=== PATIENT | female | born 1955 | race Caucasian/White ===

== ENCOUNTER 2016-07-22 08:53 | Emergency (ER) | payer BC, OTHER ==
[~2016-07-22] VITALS: Ht 165.1 cm; Wt 71.9 kg
[~2016-07-22 08:53] MED LIST: ALEN70TA4 PO; ASPI-461 PO; ATOR-22 PO; ATV5X PO; CHOL100027 PO; CYCL10TA6 PO; NXM/40 PO; OMEG1400 PO; SENN-58
[2016-07-22 09:04] VITALS: TEMP 36.6; Ht 165.1 cm; Wt 71.9 kg
[2016-07-22] MEDS ORDERED: PROB1TAB16 PO (09:18)
[2016-07-22] MEDS ORDERED: SUCR1TAB29 PO (09:18)
[2016-07-22] MEDS ORDERED: POLY335019 PO (09:18)
[2016-07-22] MEDS ORDERED: PANT40TA PO (09:18)
[2016-07-22] MEDS ORDERED: CRFL PO (09:19)
[2016-07-22 10:03] LABS: BASO % 0.5 %; BASO ABS # 0.03 K/uL (0-0.2); COMPLETE YES; EOS % 1.4 %; HEMATOCRIT 44.4 % (37-47); IG% 0.2 %; LYMPH % 35.1 %; LYMPH ABS # 2.04 K/uL (1.2-3.4); MEAN CELL VOLUME 87.4 fL (80-100); MEAN CORPUSCULAR HEMOGLOBIN 29.1 pg (25-34); MEAN CORPUSCULAR HGB CONC 33.3 g/dl (32-36); MONO % 10.7 %; NEUT % 52.1 %; PLATELET COUNT 244 K/uL (130-400); RED BLOOD COUNT 5.08 M/uL (4.2-5.4); WHITE BLOOD COUNT 5.81 K/uL (4.8-10.8)
[2016-07-22 10:18] LABS: CALCIUM 10.3 mg/dl (8.5-10.1); CREATININE 0.86 mg/dl (0.60-1.20); POTASSIUM 3.8 mmol/L (3.5-5.1)
[2016-07-22 10:20] LABS: URINE APPEARANCE CLEAR (CLEAR); URINE BILIRUBIN NEG (NEG); URINE COLOR YELLOW; URINE NITRITE NEG (NEG); URINE SPECIFIC GRAVITY 1.015 (1.000-1.030); UROBILINOGEN NEG (NEG); ZZUR CULT IF INDIC CLEAN CATCH NO
[2016-07-22 10:34] LABS: MANUAL MICROSCOPIC REQUIRED? NO; REVIEW REQ? NO
--- NOTE | 2016-07-22 10:37 | DIAGNOSTIC IMAGING REPORT ---
ABDOMEN AND PELVIS CT WITHOUT CONTRAST CT DOSE: 537.68 mGycm HISTORY: Acute left lower quadrant abdominal pain. TECHNIQUE: Multiaxial CT images of the abdomen and pelvis were performed without contrast. COMPARISON STUDY: None. FINDINGS: There is a 6 mm stone within the lower pole the left kidney. No right renal or ureteral calculi. No hydronephrosis. There are few small left renal peripelvic cysts. The bladder is not well-distended but appears unremarkable. The unenhanced liver, gallbladder, pancreas, spleen, and adrenal glands are unremarkable. No retroperitoneal lymphadenopathy. The uterus and bilateral adnexa are within normal limits. Suboptimal evaluation for bowel pathology due to the lack of intravenous and oral contrast. However, there is no definite bowel wall thickening or obstruction. A few sigmoid diverticula. Normal appendix. The lung bases are clear. No suspicious lytic or blastic osseous lesions. IMPRESSION: 1. Left-sided nephrolithiasis. No hydronephrosis. 2. No definite bowel wall thickening or obstruction. 3. A few colonic diverticula. Electronically signed by: Zain Rojas M.D. 07/22/2016 10:35 AM Dictated Date/Time: 07/22/2016 10:16 AM
[2016-07-22] MEDS ORDERED: AMOX875T PO (12:14)
[2016-07-22] MEDS ORDERED: AMOXICILLIN/CLAVULANATE TAB 875 MG TAB PO ONE (12:15)
[2016-07-22 12:33] VITALS: BP 138/87; PULSE 73; O2SAT 100
--- NOTE | 2016-07-22 15:58 | EMERGENCY ROOM VISIT NOTE ---
History Report prepared by Jose Manuel: Laure Georges Under the Supervision of: Dr. Vern Morales M.D. First contact with patient: 09:22 Chief Complaint: ABDOMINAL PAIN Stated Complaint: L LOWER QUAD PAIN Nursing Triage Summary: pt c/o left lower quad pain started 2 weeks ago. feels nauseated this am. scant bm yesterday takes miralax. had colonoscopy week of giving History of Present Illness The patient is a 60 year old female who presents to the Emergency Room with complaints of worsening left sided abdominal pain starting about 2 and a half weeks ago. She has a history of diverticulitis and reports similar symptoms today. She had a colonoscopy in April with normal results. She currently rates a pain intensity of 6/10. She also has a history of breast cancer. Pt denies LOC, headache, fevers, chills, diaphoresis, visual changes, neck pain, chest pain, breathing difficulties, nausea, vomiting, back pain, melena, hematochezia, urinary symptoms, numbness, weakness, lymphadenopathy, rash, or other complaints. Source of History: patient Onset: about 2 and a half weeks ago Position: abdomen (Left sided) Symptom Intensity: 6/10 Timing: worsening Review of Systems See HPI for pertinent positives and negatives. A total of ten systems were reviewed and were otherwise negative. Past Medical & Surgical Medical Problems: (1) Breast cancer (2) Ectopic (3) GERD (gastroesophageal reflux disease) (4) Hx of Tonsillectomy and adenoidectomy (5) Hyperlipidemia (6) Osteopenia Surgical Problems: (1) H/O tubal ligation Family History Diabetes mellitus FH: gallbladder disease Heart disease Kidney disease or stones Social History Smoking Status: Never Smoker Drug Use: none Marital Status: single Housing Status: unknown Occupation Status: employed Current/Historical Medications Scheduled Amoxicillin & Pot Clavulanate (Augmentin 875-125 mg), 875 MG PO BID Aspirin (Aspirin), 81 MG PO DAILY Atorvastatin (Lipitor), 20 MG PO DAILY Cholecalciferol (Vitamin D 1000 Unit), 1,000 INTER.UNIT PO DAILY Cyclobenzaprine Hcl (Flexeril), 10 MG PO HS [place]-3 Fatty Acids ([place]-3), 1 CAP PO DAILY Pantoprazole Sodium (Protonix), 40 MG PO DAILY Polyethylene Glycol 3350 (Miralax), 17 GM PO DAILY Probiotic Product (Probiotic), 1 TAB PO DAILY Sucralfate (Carafate), 10 ML PO DAILY Scheduled PRN Lorazepam (Lorazepam), 0.5 MG PO TID PRN for Anxiety Allergies Coded Allergies: No Known Allergies (Unverified , 07/22/16) Physical Exam Vital Signs Date Time Temp Pulse Resp B/P Pulse Ox O2 Delivery O2 Flow Rate FiO2 07/22/16 12:33 73 18 138/87 100 Room Air 07/22/16 10:36 80 18 128/83 99 Room Air 07/22/16 09:04 36.6 88 18 153/87 99 Room Air Physical Exam GENERAL: Awake, alert, well-appearing, in no distress HENT: Normocephalic, atraumatic. Oropharynx unremarkable. EYES: Normal conjunctiva. Sclera non-icteric. NECK: Supple. No nuchal rigidity. FROM. No JVD. RESPIRATORY: Clear to auscultation. CARDIAC: Regular rate, normal rhythm. Extremities warm and well perfused. Pulses equal. ABDOMEN: Soft, non-distended. Left upper and left lower quadrant tenderness to palpation. No rebound or guarding. No masses. RECTAL: Deferred. MUSCULOSKELETAL: Chest examination reveals no tenderness. The back is symmetrical on inspection without obvious abnormality. There is no CVA tenderness to palpation. No joint edema. LOWER EXTREMITIES: Calves are equal size bilaterally and non-tender. No edema. No discoloration. NEURO: Normal sensorium. No sensory or motor deficits noted. SKIN: No rash or jaundice noted. Medical Decision & Procedures ER Provider Diagnostic Interpretation: CT: Radiology results as stated below per my review and radiologist interpretation ABDOMEN AND PELVIS CT WITHOUT CONTRAST CT DOSE: 537.68 mGycm HISTORY: Acute left lower quadrant abdominal pain. TECHNIQUE: Multiaxial CT images of the abdomen and pelvis were performed without contrast. COMPARISON STUDY: None. FINDINGS: There is a 6 mm stone within the lower pole the left kidney. No right renal or ureteral calculi. No hydronephrosis. There are few small left renal peripelvic cysts. The bladder is not well-distended but appears unremarkable. The unenhanced liver, gallbladder, pancreas, spleen, and adrenal glands are unremarkable. No retroperitoneal lymphadenopathy. The uterus and bilateral adnexa are within normal limits. Suboptimal evaluation for bowel pathology due to the lack of intravenous and oral contrast. However, there is no definite bowel wall thickening or obstruction. A few sigmoid diverticula. Normal appendix. The lung bases are clear. No suspicious lytic or blastic osseous lesions. IMPRESSION: 1. Left-sided nephrolithiasis. No hydronephrosis. 2. No definite bowel wall thickening or obstruction. 3. A few colonic diverticula. Electronically signed by: Zain Rojas M.D. 07/22/2016 10:35 AM Dictated Date/Time: 07/22/2016 10:16 AM Laboratory Results 07/22/16 09:40 Red Blood Count 5.08, Mean Corpuscular Volume 87.4, Mean Corpuscular Hemoglobin 29.1, Mean Corpuscular Hemoglobin Concent 33.3, Mean Platelet Volume 9.0, Neutrophils (%) (Auto) 52.1, Lymphocytes (%) (Auto) 35.1, Monocytes (%) (Auto) 10.7, Eosinophils (%) (Auto) 1.4, Basophils (%) (Auto) 0.5, Neutrophils # (Auto ) 3.03, Lymphocytes # (Auto) 2.04, Monocytes # (Auto) 0.62, Eosinophils # (Auto ) 0.08, Basophils # (Auto) 0.03 07/22/16 09:40 Test 07/22/16 09:40 White Blood Count 5.81 K/uL (4.8-10.8) Red Blood Count 5.08 M/uL (4.2-5.4) Hemoglobin 14.8 g/dL (12.0-16.0) Hematocrit 44.4 % (37-47) Mean Corpuscular Volume 87.4 fL (80-100) Mean Corpuscular Hemoglobin 29.1 pg (25-34) Mean Corpuscular Hemoglobin Concent 33.3 g/dl (32-36) Platelet Count 244 K/uL (130-400) Mean Platelet Volume 9.0 fL (7.4-10.4) Neutrophils (%) (Auto) 52.1 % Lymphocytes (%) (Auto) 35.1 % Monocytes (%) (Auto) 10.7 % Eosinophils (%) (Auto) 1.4 % Basophils (%) (Auto) 0.5 % Neutrophils # (Auto) 3.03 K/uL (1.4-6.5) Lymphocytes # (Auto) 2.04 K/uL (1.2-3.4) Monocytes # (Auto) 0.62 K/uL (0.11-0.59) Eosinophils # (Auto) 0.08 K/uL (0-0.5) Basophils # (Auto) 0.03 K/uL (0-0.2) RDW Standard Deviation 41.7 fL (36.4-46.3) RDW Coefficient of Variation 13.0 % (11.5-14.5) Immature Granulocyte % (Auto) 0.2 % Immature Granulocyte # (Auto) 0.01 K/uL (0.00-0.02) Urine Color YELLOW Urine Appearance CLEAR (CLEAR) Urine pH 8.0 (4.5-7.5) Urine Specific [place] 1.015 (1.000-1.030) Urine Protein NEG (NEG) Urine Glucose (UA) NEG (NEG) Urine Ketones NEG (NEG) Urine Occult Blood NEG (NEG) Urine Nitrite NEG (NEG) Urine Bilirubin NEG (NEG) Urine Urobilinogen NEG (NEG) Urine Leukocyte Esterase NEG (NEG) Anion Gap 11.0 mmol/L (3-11) Est Creatinine Clear Calc Drug Dose 68.3 ml/min Estimated GFR () 84.5 Estimated GFR (Non- 72.9 BUN/Creatinine Ratio 15.0 (10-20) Calcium Level 10.3 mg/dl (8.5-10.1) Total Bilirubin 0.6 mg/dl (0.2-1) Direct Bilirubin 0.2 mg/dl (0-0.2) Aspartate Amino Transf (AST/SGOT) 31 U/L (15-37) Alanine Aminotransferase (ALT/SGPT) 35 U/L (12-78) Alkaline Phosphatase 84 U/L (45-117) Total Protein 8.3 gm/dl (6.4-8.2) Albumin 4.5 gm/dl (3.4-5.0) Lipase 156 U/L (73-393) Laboratory results reviewed by me Medications Administered Medications (Trade) Dose Ordered Sig/Cristina Route Start Time Stop Time Status Last Admin Dose Admin Amoxicillin/ Clavulanate Potassium (Augmentin Tab) 875 mg ONE ONCE PO 07/22/16 12:15 07/22/16 12:16 DC 07/22/16 12:32 875 MG ED Course 09: The patient was evaluated in room C03. A complete history and physical exam was performed. 1206: I reevaluated the patient who is resting comfortably. 1215: Augmentin Tab 875 mg PO 1225: I reevaluated the patient. Discussed results and discharge instructions: She verbalized understanding and agreement. The patient is ready for discharge. Medical Decision Triage Nursing notes reviewed. The patient's presentation and history were concerning for left lower quadrant abdominal pain. Etiologies such as diverticulitis, obstruction, inflammatory bowel disease, appendicitis, renal colic, PUD, biliary pathology, pancreatitis, mesenteric ischemia, aortic pathology, infections, genitourinary, UTI, perforated viscus, as well as others were entertained. The patient was evaluated. She declined analgesia. Blood work was obtained. She had an unremarkable CBC, chemistry panel, LFTs lipase and urinalysis. The patient underwent CT imaging. This revealed some diverticulosis but no clear evidence of diverticulitis. The patient examines like diverticulitis. I discussed conservative treatment with Augmentin. The patient did note some constipation issues. There is no evidence of abscess or perforation. The patient was comfortable with conservative management. She was given Augmentin here and [facility] She will follow-up closely as an outpatient. By the evaluation outlined above other emergent etiologies such as those listed in the differential, as well as others, were deemed relatively unlikely. The patient was informed about the findings as listed above. All questions were answered and she was very pleased with the treatment. Return instructions were outlined and the patient was discharged in stable condition. The patient was referred to her PCP for follow-up for a recheck of the current condition. The chart was completed utilizing [employer] Speech voice recognition software. Grammatical errors, random word insertions, pronoun errors, and incomplete sentences are an occasional consequence of this system due to software limitations, ambient noise, and hardware issues. Any formal questions or concerns about the content, text, or information contained within the body of this dictation should be directly addressed to the physician for clarification. Impression Primary Impression: LLQ abdominal pain Scribe Attestation The scribe's documentation has been prepared under my direction and personally reviewed by me in its entirety. I confirm that the note above accurately reflects all work, treatment, procedures, and medical decision making performed by me. Departure Information Dispostion Home / Self-Care Prescriptions Amoxicillin & Pot Clavulanate (Augmentin 875-125 mg) 1 Tab Tab 875 MG PO BID for 7 Days, #19 TAB Prov: Vern Morales MD 07/22/16 Referrals Reece Romero M.D. (PCP) Forms HOME CARE DOCUMENTATION FORM, IMPORTANT VISIT INFORMATION Patient Instructions [facility] Additional Instructions Amoxicillin Clavulanate (Augmentin) 875mg: Take one pill twice daily for 10 days for your bowel infection. All antibiotics can cause diarrhea. If this occurs and you feel worse or it does not resolve in 1-2 days follow up with your doctor or return to the Emergency Department as this could be signs of serious underlying problems. Any medication can cause an allergic reaction, stop the pills immediately and return to the ER for rash, hives, breathing difficulties, or swelling. Ibuprofen(Motrin, Advil) may be used for fever or pain. Use 600mg every six hours as needed. Take with food. Avoid using more than 2400mg in a 24 hour period. Do not use 2400mg per day for more than three consecutive days without physician direction. Prolonged inappropriate use can lead to stomach upset or ulcers. (AND/OR) Acetaminophen(Tylenol) may be used for fever or pain. Use 1000mg every six hours as needed. Avoid using more than 4000mg in a 24 hour period. Rest and drink plenty of fluids as tolerated. Slow sips of water or sports drinks are recommended instead of large amounts all at once. Continue current medications. Once your stomach is settled start with a clear liquid diet (jello, soup broth, etc.) and then advance as tolerated. You should avoid full, heavy meals for about 24 hrs from the time your symptoms resolved. Return to the ER immediately for worsening or persistent abdominal pain, vomiting, fevers, chest pains, difficulty breathing, black or bloody stools, worsening of your condition, or as needed. Follow up with your primary physician in 2-3 days for a recheck of your current condition.
== END 2016-07-22 12:40 | disposition home or self-care (01) ==
LOC: C.EDB 08:54 → C.EDC 12:40
DX: R10.32 Left lower quadrant pain (principal); E78.5 Hyperlipidemia, unspecified; K21.9 Gastro-esophageal reflux disease without esophagitis; M85.80 Other specified disorders of bone density and structure, unspecified site; Z85.3 Personal history of malignant neoplasm of breast; Z79.82 Long term (current) use of aspirin

== ENCOUNTER 2017-03-07 13:47 | Emergency (ER) | payer OTHER ==
[~2017-03-07] VITALS: Ht 165.1 cm; Wt 68.4 kg
[~2017-03-07 13:47] MED LIST changes: -ALEN70TA4 PO; +CRFL PO; -NXM/40 PO; +PANT40TA PO; +POLY335019 PO; +PROB1TAB16 PO; -SENN-58
[2017-03-07 13:50] VITALS: TEMP 36.6; Ht 165.1 cm; Wt 68.4 kg
[2017-03-07 14:50] VITALS: O2SAT 100
--- NOTE | 2017-03-07 14:50 | DIAGNOSTIC IMAGING REPORT ---
CHEST ONE VIEW PORTABLE CLINICAL HISTORY: chest pain dyspnea COMPARISON STUDY: 08/19/2015 FINDINGS: The lungs are clear. Diaphragms are smooth. No evidence for cardiac enlargement. Stable postoperative changes right axilla. IMPRESSION: No acute process. The above report was generated using voice recognition software. It may contain grammatical, syntax or spelling errors. Electronically signed by: Rich Hernandez M.D. 03/07/2017 2:48 PM Dictated Date/Time: 03/07/2017 2:48 PM
[2017-03-07 15:01] LABS: HEMATOCRIT 43.6 % (37-47); MEAN CELL VOLUME 88.6 fL (80-100); MEAN CORPUSCULAR HEMOGLOBIN 30.1 pg (25-34); MEAN CORPUSCULAR HGB CONC 33.9 g/dl (32-36); MEAN PLATELET VOLUME 8.9 fL (7.4-10.4); PLATELET COUNT 255 K/uL (130-400); RED BLOOD COUNT 4.92 M/uL (4.2-5.4); WHITE BLOOD COUNT 5.35 K/uL (4.8-10.8)
[2017-03-07] MEDS ORDERED: RANI300T2 PO (15:02)
[2017-03-07 15:30] LABS: ALKALINE PHOSPHATASE 86 U/L (45-117); ALT/SGPT 28 U/L (12-78); BLOOD UREA NITROGEN 15 mg/dl (7-18); BUN/CREATININE RATIO 15.8 (10-20); CALCIUM 9.6 mg/dl (8.5-10.1); CARBON DIOXIDE 27 mmol/L (21-32); CHLORIDE 105 mmol/L (98-107); CREATININE 0.93 mg/dl (0.60-1.20); GLUCOSE 112 mg/dl (70-99); SODIUM 137 mmol/L (136-145)
--- NOTE | 2017-03-07 16:17 | DIAGNOSTIC IMAGING REPORT ---
CAROTID DOPPLER NECK ART HISTORY: Neck pain left neck pain, r/o dissection COMPARISON: None. TECHNIQUE: Real-time, grayscale, and color Doppler sonography of the carotid arteries was performed. Imaging reviewed in the transverse and longitudinal planes. All measurements were calculated based on NASCET criteria. FINDINGS: Antegrade flow is seen in the bilateral vertebral arteries. The brachial pressures are hemodynamically similar. Minimal plaque dimension bilaterally The peak systolic velocity within the right ICA is 70. The right systolic ratio is 0.8. The peak systolic velocity within the left ICA is 65. The left systolic ratio is 0.7. IMPRESSION: No hemodynamically significant stenosis seen within the carotid arteries. No evidence for dissection. Minimal plaque formation. The above report was generated using voice recognition software. It may contain grammatical, syntax or spelling errors. Electronically signed by: Rich Hernandez M.D. 03/07/2017 4:16 PM Dictated Date/Time: 03/07/2017 4:15 PM
[2017-03-07 17:26] VITALS: BP 135/87; PULSE 90; O2SAT 99
--- NOTE | 2017-03-07 17:34 | EMERGENCY ROOM VISIT NOTE ---
History Report prepared by Jose Manuel: Angélica Freed Under the Supervision of: Dr. Mathieu Stark M.D. First contact with patient: 14:48 Chief Complaint: CHEST PAIN Stated Complaint: CHEST PAIN Nursing Triage Summary: triage note: Pt reports left sided neck pain and mid chest pain since 1230 today. History of Present Illness The patient is a 61 year old female who presents to the Emergency Room with complaints of an episode of chest pain starting 2 hours ago. The patient states that it started in her left neck and came across her chest while driving to work. The patient states that the pain is a tightness. She currently rates her pain as a 5/10 in severity. She notes that nothing makes it worse or better. The patient denies shortness of breath, pain worsened with breathing, nausea, diaphoresis, recent trips, a history of blood clots, swelling in her legs, cough , congestion, and doing any strenuous activity recently. The patient notes that she does follow with a carton folder due to having an episode of tachycardia 6 years ago. She states that she has a stress test done every year and last years was better than the year before that. The patient notes that she also had an echocardiogram done earlier this year that was normal. Source of History: patient Onset: 2 hours ago Position: chest Symptom Intensity: 5/10 Quality: other (tightness) Timing: other (episode) Associated Symptoms: No diaphoresis, No cough, No SOB, No nausea Note: The patient denies pain worsened with breathing, recent trips, a history of blood clots, swelling in her legs, congestion, and doing any extraneous activity recently Review of Systems See HPI for pertinent positives & negatives. A total of 10 systems reviewed and were otherwise negative. Past Medical & Surgical Medical Problems: (1) Breast cancer (2) Ectopic (3) GERD (gastroesophageal reflux disease) (4) Hx of Tonsillectomy and adenoidectomy (5) Hyperlipidemia (6) Osteopenia (7) Tachycardia Surgical Problems: (1) H/O tubal ligation Family History Diabetes mellitus FH: gallbladder disease Heart disease Kidney disease or stones Social History Smoking Status: Never Smoker Drug Use: none Marital Status: single Housing Status: unknown Occupation Status: employed Current/Historical Medications Scheduled Aspirin (Aspirin), 81 MG PO DAILY Atorvastatin (Lipitor), 20 MG PO DAILY Cholecalciferol (Vitamin D 1000 Unit), 1,000 INTER.UNIT PO DAILY [place]-3 Fatty Acids ([place]-3), 1 CAP PO DAILY Pantoprazole Sodium (Protonix), 40 MG PO DAILY Polyethylene Glycol 3350 (Miralax), 17 GM PO DAILY Probiotic Product (Probiotic), 1 TAB PO DAILY Ranitidine Hcl (Zantac), 300 MG PO HS Scheduled PRN Cyclobenzaprine Hcl (Flexeril), 10 MG PO HS PRN for spasms Lorazepam (Lorazepam), 0.5 MG PO TID PRN for Anxiety Allergies Coded Allergies: No Known Allergies (Unverified , 03/07/17) Physical Exam Vital Signs Date Time Temp Pulse Resp B/P (MAP) Pulse Ox O2 Delivery O2 Flow Rate FiO2 03/07/17 17:26 90 18 135/87 99 03/07/17 17:00 93 16 135/87 99 03/07/17 16:52 134/91 03/07/17 15:30 86 20 136/82 03/07/17 15:00 87 03/07/17 15:00 88 16 138/83 99 03/07/17 14:50 100 Room Air 03/07/17 13:50 36.6 101 18 149/84 99 Room Air Physical Exam GENERAL: Patient is in no acute distress. HEENT: No acute trauma, normocephalic atraumatic, mucous membranes moist, no nasal congestion, no scleral icterus. NECK: No stridor, no adenopathy, no meningismus, trachea is midline. Tender over lateral superior left neck muscles. No Bruits. Equal carotid uptakes. LUNGS: Clear to auscultation bilaterally, no wheeze, no rhonchi, breath sounds equal. HEART: Without murmurs gallops or rubs, regular rate and rhythm. ABDOMEN: Soft, nontender, bowel sounds positive, no hernias, no peritonitis. EXTREMITIES: No cyanosis or edema, full range of motion of all the joints without pain or difficulty, no signs for acute trauma. NEUROLOGIC: Oriented x 3, no acute motor or sensory deficits, no focal weakness. SKIN: No rash, no jaundice, no diaphoresis. Medical Decision & Procedures ER Provider Diagnostic Interpretation: Radiology results as stated below per my review and radiologist interpretation: CHEST ONE VIEW PORTABLE CLINICAL HISTORY: chest pain dyspnea COMPARISON STUDY: 08/19/2015 FINDINGS: The lungs are clear. Diaphragms are smooth. No evidence for cardiac enlargement. Stable postoperative changes right axilla. IMPRESSION: No acute process. The above report was generated using voice recognition software. It may contain grammatical, syntax or spelling errors. Electronically signed by: Rich Hernandez M.D. 03/07/2017 2:48 PM Dictated Date/Time: 03/07/2017 2:48 PM CAROTID DOPPLER NECK ART HISTORY: Neck pain left neck pain, r/o dissection COMPARISON: None. TECHNIQUE: Real-time, grayscale, and color Doppler sonography of the carotid arteries was performed. Imaging reviewed in the transverse and longitudinal planes. All measurements were calculated based on NASCET criteria. FINDINGS: Antegrade flow is seen in the bilateral vertebral arteries. The brachial pressures are hemodynamically similar. Minimal plaque dimension bilaterally The peak systolic velocity within the right ICA is 70. The right systolic ratio is 0.8. The peak systolic velocity within the left ICA is 65. The left systolic ratio is 0.7. IMPRESSION: No hemodynamically significant stenosis seen within the carotid arteries. No evidence for dissection. Minimal plaque formation. The above report was generated using voice recognition software. It may contain grammatical, syntax or spelling errors. Electronically signed by: Rich Hernandez M.D. 03/07/2017 4:16 PM Dictated Date/Time: 03/07/2017 4:15 PM Laboratory Results 03/07/17 14:50 03/07/17 14:50 Test 03/07/17 14:50 03/07/17 16:53 Red Blood Count 4.92 M/uL (4.2-5.4) Mean Corpuscular Volume 88.6 fL (80-100) Mean Corpuscular Hemoglobin 30.1 pg (25-34) Mean Corpuscular Hemoglobin Concent 33.9 g/dl (32-36) RDW Standard Deviation 44.8 fL (36.4-46.3) RDW Coefficient of Variation 13.8 % (11.5-14.5) Mean Platelet Volume 8.9 fL (7.4-10.4) Anion Gap 5.0 mmol/L (3-11) Est Creatinine Clear Calc Drug Dose 56.4 ml/min Estimated GFR () 76.3 Estimated GFR (Non- 65.9 BUN/Creatinine Ratio 15.8 (10-20) Calcium Level 9.6 mg/dl (8.5-10.1) Total Bilirubin 0.6 mg/dl (0.2-1) Aspartate Amino Transf (AST/SGOT) U/L (15-37) Alanine Aminotransferase (ALT/SGPT) 28 U/L (12-78) Alkaline Phosphatase 86 U/L (45-117) Total Creatine Kinase U/L (26-192) Creatine Kinase MB 1.4 ng/ml (0.5-3.6) Creatine Kinase MB Ratio (0-3.0) Total Protein 7.8 gm/dl (6.4-8.2) Albumin 3.9 gm/dl (3.4-5.0) Globulin 3.9 gm/dl (2.5-4.0) Albumin/Globulin Ratio 1.0 (0.9-2) Bedside Troponin I < 0.030 ng/ml (0-0.045) Laboratory results reviewed by me. ECG Indication: chest pain Rate (beats per minute): 102 Rhythm: sinus tachycardia Findings: no acute ischemic change, no ectopy ED Course 1448: The patient was evaluated in room C12A. A complete history and physical exam was performed. 1655: I reevaluated the patient and she is doing well. 1711: Reevaluated the patient. Discussed results and discharge instructions: she verbalized understanding and agreement. The patient is ready for discharge. Medical Decision Differential diagnoses include musculoskeletal pain, aortic dissection, PE, VA, pneumothorax, pneumonia, carotid dissection. There is no leukocytosis or concerning anemia. No significant electrolyte abnormality, kidney failure or hepatitis. Chest film does not show pneumothorax , pneumonia or cardiomegaly. There is no mediastinal widening. EKG shows a mild sinus tachycardia, no acute ischemia. Cardiac enzyme testing 2 is not consistent with acute cardiac injury. Carotid ultrasound does not show carotid dissection or significant stenosis. The patient did not require anything for pain. Her workup is benign. Her pain does seem reproducible and I suspect musculoskeletal. She was reassured. She is being discharged home with conservative measures. Impression Primary Impression: Left sided chest pain Additional Impression: Neck pain on left side Scribe Attestation The scribe's documentation has been prepared under my direction and personally reviewed by me in its entirety. I confirm that the note above accurately reflects all work, treatment, procedures, and medical decision making performed by me. Departure Information Dispostion Home / Self-Care Referrals Reece Romero M.D. (PCP) Forms Call Back Authorization, HOME CARE DOCUMENTATION FORM, IMPORTANT VISIT INFORMATION Patient Instructions [facility] Additional Instructions motrin and or tylenol for pain heat to the areas may help return if worsening or have fever heart testing was all ok today see radha ulloa for a recheck this week Problem Qualifiers
== END 2017-03-07 17:26 | disposition home or self-care (01) ==
LOC: C.EDB 13:47 → C.EDC 17:26
DX: R07.9 Chest pain, unspecified (principal); M54.2 Cervicalgia; Z85.3 Personal history of malignant neoplasm of breast; K21.9 Gastro-esophageal reflux disease without esophagitis; E78.5 Hyperlipidemia, unspecified; M85.80 Other specified disorders of bone density and structure, unspecified site; Z83.3 Family history of diabetes mellitus; Z83.79 Family history of other diseases of the digestive system; Z82.49 Family history of ischemic heart disease and other diseases of the circulatory system; Z84.1 Family history of disorders of kidney and ureter; Z79.82 Long term (current) use of aspirin; Z79.899 Other long term (current) drug therapy